=== PATIENT | male | born 1980 | race Caucasian/White ===

== ENCOUNTER 2016-11-28 17:29 | Emergency (ER) | payer SELFPAY ==
[2016-11-28 17:31] VITALS: BP 103/56; PULSE 75; TEMP 98
[2016-11-28 18:38] VITALS: BMI 18.1
== END 2016-11-28 18:50 | disposition left against medical advice (07) ==
LOC: ED 17:29
DX: M54.9 Dorsalgia, unspecified (principal)
CPT/HCPCS: 99281